=== PATIENT | female | born 1975 | race Caucasian/White ===

== ENCOUNTER → 2019-11-07 | Outpatient (CLI) | payer SELFPAY ==
[~2019-11-07] MED LIST: ACHD5005 PO; ALPR1TAB2 PO; CLIN-62 PO; DULO60CA6 PO; ESTR1TAB24 PO; HYDR-3714 PO; HYDR-690 PO; IBP600T1 PO; NAPR-243 PO; ONDAN4ODT PO; OXYC-12 PO; TRM50T PO
--- NOTE | 2019-11-08 11:11 | Diagnostic Imaging Report ---
INDICATION: Hyperthyroidism and neck pain. Patient was administered 203 uCi of I-123 and 4 hour and 24-hour thyroid uptake was performed. Thyroid scan was also performed. 24-hour thyroid uptake is 26%. Normal values are 10-30%. 4-hour uptake is 13%. Normal values are 8-16%. Thyroid scan demonstrates fairly homogeneous uptake of activity throughout both lobes of the thyroid gland. No definite hot or cold nodules are seen. IMPRESSION: Unremarkable thyroid uptake and thyroid scan. Dictated by: Dictated on workstation # [id number]
== END ==
LOC: CARD 10:39
PROVIDERS: ATTEND Nurse Practitioner Family
DX: E05.90 Thyrotoxicosis, unspecified without thyrotoxic crisis or storm (principal); M54.2 Cervicalgia
CPT/HCPCS: 78014; A9516

== ENCOUNTER → 2021-06-16 | Outpatient (CLI) | payer OTHER ==
--- NOTE | 2021-06-16 11:48 | Diagnostic Imaging Report ---
INDICATION: Routine screening. Comparison is made with prior mammogram from 06/25/2014. 2-D and 3-D bilateral screening mammography was performed with CAD. Both breasts are heterogeneously dense, limiting the sensitivity of mammography. The parenchymal pattern is stable. No mass or malignant-appearing microcalcifications are seen. Axillae are unremarkable. IMPRESSION: No mammographic features suspicious for malignancy are identified. BI-RADS Category 1 ACR BI-RADS Category 1: Negative. Result letter will be mailed to the patient. Note: At least 10% of breast cancer is not imaged by mammography. Dictated by: Dictated on workstation # [id number]
== END ==
LOC: RAD 09:00
PROVIDERS: ATTEND Obstetrics & Gynecology
DX: Z12.31 Encounter for screening mammogram for malignant neoplasm of breast (principal)
CPT/HCPCS: 77063; 77067